=== PATIENT | male | born 1955 | race Caucasian/White ===

== ENCOUNTER 2016-08-05 11:43 | Inpatient (IN) | payer OTHER ==
[~2016-08-05] VITALS: Ht 182.9 cm; Wt 145.0 kg
--- NOTE | 2016-08-05 13:20 | NUR ---
ADMIT Direct Admit from [place]. Pt comes A&OX4, Denies CP, SOB at rest, and nausea. Telemetry will be placed on pt. Peripheral ivs X 2 Left FA and hand. NS and Potassium running in Left FA IV which will be stopped until telemetry placed. No BPs in right arm r/t lymph node removals. Bilateral LE neuropathy baseline in feet. Bilateral LE nonpitting slight swelling. Connolly in place patent and draining small amount of nia urine. Care continues Addendum: 08/05/16 at 1451 by FREDY CHRISTIAN RN Several linens soiled and wet with yellow strong smelling odor removed from under pt after transfer. Pt placed on Contact C-Diff procautions until r/o.
[2016-08-05 13:42] VITALS: BP 86/61; PULSE 93; RESP 19; O2SAT 96
[2016-08-05 13:48] VITALS: PULSE 85
[2016-08-05] MEDS ORDERED: Polyethylene Glycol (PEG) 17 Gm Powder PO PRN (14:20)
[2016-08-05] MEDS ORDERED: Alum-Mag Hydrox-Simeth 30 mL Suspension PO PRN (14:20)
[2016-08-05] MEDS ORDERED: Ondansetron 2 mg/mL 2 mL Inj IVPUSH PRN (14:20)
[2016-08-05] MEDS ORDERED: HYDR10TA12 PO ×2 (14:31)
[2016-08-05] MEDS ORDERED: ONDA-54 PO (14:31)
[2016-08-05] MEDS ORDERED: LEVO50TA6 PO (14:31)
[2016-08-05] MEDS ORDERED: LISI1TAB11 PO (14:31)
[2016-08-05] MEDS: Vancomycin 125 mg Oral Capsule PO SCH ×2 (15:46→21:46)
[2016-08-05] MEDS ORDERED: 0.9% Sodium Chloride 1,000 ML IV ONE (16:45)
--- NOTE | 2016-08-05 16:48 | PCM.HPMED ---
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 He was also recently diagnosed with primary adrenal insufficiency He presented to [facility] ED with watery diarrhea which started 5 days ago. Diarrhea is watery, no mucosal blood, very frequent, 6 episodes in the last few hours. He also has nausea and poor oral intake. He felt fever and chills starting Friday 3 days ago. No abdominal pain. Denies cough. Denies any antibiotic use recently He is currently on steroid for primary adrenal insufficiency reportedly identified with ACTH stimulation test on 07/17/16 He is on lisinopril/HCTZ 20/12.5 daily which he has been taking [place] ED course: He was initially hypotensive with systolic blood pressure 68 and was given 1.5 L of normal saline and systolic blood pressure responded to 92. Stool for C. difficile sent WBC 12.9, hemoglobin 16.7 (hemoconcentrated), K3.1, bicarbonate 16, BUn 30,Cr 4.1, lactate 1.4,Tbili 1.9, pro calcitonin 1.1, INR 1.2, Fluid administered and transferred for nephrology evaluation Up on arrival BP 86/61, temp 38.1, HR 93. Normal saline bolus given and continued at 200ml/h Review of Systems: Comprehensive review of systems performed, pertinent positives and negatives included in history of present illness Allergies Coded Allergies: No Known Allergies (Unverified , 08/05/16) Home Medications Amlodipine 5 mg by mouth daily recently discontinued last week Naproxen 220 mg when necessary for pain Synthroid 50 mics daily Lisinopril/HCTZ 20/12.5 one tablet by mouth daily Zofran 8 mg by mouth before meals lorazepam 0.5 when necessary for anxiety Hydrocortisone 20 mg in the morning , 20 mg at lunchtime, 10 mg at bedtime PMH Stage IV metastatic melanoma diagnosed initially in 1995 Bilateral pulmonary metastases Hypertension Hypothyroidism Primary adrenal insufficiency, reportedly identified with ACTH stimulation test on 07/17/16 Surgical History Cholecystectomy Right axillary lymphadenectomy Partial thyroidectomy Family History Reviewed and noncontributory Social History Hx Alcohol Use: Yes ("very little") Exam Vital Signs Vital Sign - Last Date Time Temp Pulse Resp B/P Pulse Ox O2 Delivery O2 Flow Rate FiO2 08/05/16 13:57 Supplement Oxygen 08/05/16 13:48 85 08/05/16 13:42 38.1 19 86/61 96 Exam Gen. patient is lying comfortably in hospital bed HEENT: Head is normocephalic atraumatic, dry tongue and buccal mucosa Lungs clear to auscultation bilaterally Heart regular rate and rhythm without murmurs gallops or rubs Abdomen soft nontender without hepatosplenomegaly Extremities pulses are present dorsalis pedis posterior tibialis and radial. tSkin is warm and dry there are no rashes, Psych alert and oriented to person place and time Neuro cranial nerves II through XII are grossly intact Lymph: There is no lymphadenopathy appreciated in the cervical supra infraclavicular regions : no maravilla Assessment & Plan 61-year-old gentleman with past medical history of stage IV metastatic melanoma , recently diagnosed primary adrenal insufficiency presented with a five-day diarrhea and acute kidney failure # Acute kidney failure, prerenal -Due to diarrhea, poor oral intake in setting of continued lisinopril/HCTZ use -Patient presented with creatinine of 4.1, baseline creatinine normal -Continue IV fluids NS at 200ml/h -Had hypotension at [place] and on arrival and her and responded to bolus. Started on stress dose steroid hydrocortisone 100 3 times a day given recent diagnosis of primary adrenal insufficiency -CT abdomen -We will consult nephrology # Hypotension -Due to diarrhea and primary adrenal insufficiency -Management of above # Acute watery diarrhea -Due to infectious colitis versus C. difficile versus recent melanoma immunotherapy -C. difficile requested here, C. difficile was reportedly also sent at [facility], with follow-up tomorrow -Started empiric by mouth vancomycin until C. difficile result is available -Diarrhea possibly due to immunotherapy but will cover with empiric antibiotic Zosyn for colitis and by mouth vancomycin for C. difficile given procal of 1.12, temp 38.1 . He is also started on empiric stress dose steroid which may help with immunotherapy related diarrhea -CT abd pending # sepsis -Temp 38.1, initial application with SBP 86, WBC 12 but on steroid -Started empiric Zosyn to cover colitis -Consult ID # Primary adrenal insufficiency, recently diagnosed -Stress dose steroid # Metastatic melanoma -We will notify Dr. Fiore Patient admitted under inpatient status with expected length of stay > 2 midnights for severity of present symptoms, complexities of treatment plan and risk for adverse events full code, verified with patient copies to: Ashok Fiore DO; Lukasz Archuleta MD, Melaku MD August 05, 2016 16:48
[2016-08-05 17:13] VITALS: BP 121/75; PULSE 88; RESP 18; O2SAT 96
--- NOTE | 2016-08-05 17:21 | NUR ---
MD Concern Per MD Strict Q4 vitals checks. If pt experiences any hypotension less than 100 S then notify MD personal injury law specialist JOSELINE. Care continues
[2016-08-05 17:54] LABS: BASOPHILS % (AUTO) 0.3 % (0-3); EOSINOPHILS % (AUTO) 0.2 % (0-5); MONOCYTES % (AUTO) 6.1 % (4-12); Mean Corpuscular Hemoglobin 31.5 pg (27.0-35.0); Mean Corpuscular Volume 89.6 fL (81-100); NEUTROPHILS % (AUTO) 84.7 % (40-74); Platelet Count 141 bil/L (150-400)
[2016-08-05 18:24] LABS: Magnesium 1.8 mg/dL (1.6-2.6)
[2016-08-05] MEDS: Hydrocortisone 50 mg/mL 2 mL Inj IVPUSH SCH (18:27)
[2016-08-05] MEDS ORDERED: Piperacillin-Tazo 3.375 Gm Inj 3.375 GM in Dextrose 5% Minibag Plus 50 ML IV SCH (18:30)
--- NOTE | 2016-08-05 18:53 | NUR ---
Diarrhea Multiple loose stools green and watery with odor. Precautions in place for enteric contact.
[2016-08-05 19:09] LABS: APPEARANCE,URINE CLEAR (CLEAR,HAZY); COLOR,URINE YELLOW (YELLOW); OCCULT BLOOD,URINE MODERATE (NEGATIVE); UROBILINOGEN,URINE NORMAL (NORMAL)
[2016-08-05] MEDS: 0.9% Sodium Chloride 1,000 ML IV SCH ×2 (19:17→20:59)
--- NOTE | 2016-08-05 19:29 | DRSVH ---
PROCEDURE: CT ABDOMEN AND PELVIS WITHOUT CONTRAST ([id number]) INDICATIONS: ELOY ,colitis TECHNIQUE: After the administration of oral contrast, 5 mm thick sections acquired from the diaphragms to the sy mphysis. 5 mm coronal and sagittal reformats were performed. For radiation dose reduction, the foll owing was used: automated exposure control, adjustment of mA and/or kV according to patient size. COMPARISON: [facility], CT, NECK/CHEST/ABD/PEL W CONTRAST, 07/25/2016, 13:24. FINDINGS: Image quality: Excellent. ABDOMEN: Lung bases: Previously seen nodule within the right posterior medial lung base has increased in size, currently measuring 23 mm diameter. No significant change in left posterior costophrenic angle nodul e measuring 10 mm. Heart size is normal. Solid organs: Liver and spleen are normal in size. Gallbladder is surgically absent. Pancreas is n ormal in size. No adrenal nodules. Both kidneys are normal in size, without hydronephrosis or nephr olithiasis. Peritoneum and bowel: A small hiatal hernia is present, as before. There is mild thickening of the di stal esophagus, as before. Bowel loops demonstrate normal wall thickness and caliber. Diffuse coloni c fluid is present. No free fluid or air. Nodes and vessels: No retroperitoneal or mesenteric adenopathy by size criteria. Aorta and inferior vena cava are normal in size. Miscellaneous: No ventral hernias. PELVIS: Genitourinary: A Connolly catheter is present. Urinary bladder is decompressed. Miscellaneous: No inguinal hernias or adenopathy. Bones: No suspicious bony lesions. No vertebral body compression fractures. IMPRESSION: 1. Diffuse colonic fluid, consistent with the given history of colitis. 2. Increased right lung base metastasis. Dictated by: Dana Lopez M.D. on 08/05/2016 at 19:24 Approved by: Dana Lopez M.D. on 08/05/2016 at 19:28
[2016-08-05 19:50] VITALS: BP 128/75; PULSE 80; RESP 17; O2SAT 97
[2016-08-05 20:00] VITALS: PULSE 75
[2016-08-05] MEDS: Piperacillin-Tazo 3.375 Gm Inj 3.375 GM in Dextrose 5% Minibag Plus 50 ML IV SCH (20:00)
[2016-08-05 23:50] VITALS: BP 124/74; PULSE 72; RESP 16; O2SAT 99
[2016-08-06] MEDS: Hydrocortisone 50 mg/mL 2 mL Inj IVPUSH SCH ×2 (00:46→08:04)
--- NOTE | 2016-08-06 01:24 | NUR ---
Bowel/BP Pt continues with watery diarrhea-green in color. PCR negative, removed Pt from precautions. BP stable 120's, Pt up to BSC with steady gait, Connolly ok'd to remove per MD, Pt has good urine output.
[2016-08-06] MEDS: 0.9% Sodium Chloride 1,000 ML IV SCH ×4 (01:55→16:17)
[2016-08-06] MEDS: Vancomycin 125 mg Oral Capsule PO SCH (02:50)
[2016-08-06 04:30] VITALS: BP 129/80; PULSE 75; RESP 16; O2SAT 97
[2016-08-06 06:46] LABS: BASOPHILS % (AUTO) 0 % (0-3); EOSINOPHILS % (AUTO) 0 % (0-5); MONOCYTES % (AUTO) 3.4 % (4-12); Mean Corpuscular Hemoglobin 31.4 pg (27.0-35.0); Mean Corpuscular Volume 89.1 fL (81-100); NEUTROPHILS % (AUTO) 88.1 % (40-74); Platelet Count 138 bil/L (150-400)
[2016-08-06 06:56] LABS: Magnesium 1.9 mg/dL (1.6-2.6)
[2016-08-06] MEDS: Piperacillin-Tazo 3.375 Gm Inj 3.375 GM in Dextrose 5% Minibag Plus 50 ML IV SCH (08:04)
[2016-08-06 10:07] VITALS: BP 144/78; PULSE 68; RESP 18; O2SAT 97
[2016-08-06 10:47] VITALS: PULSE 65
--- NOTE | 2016-08-06 11:56 | CONS ---
[address] [address] CONSULTATION REPORT PATIENT: AMY SARMIENTO : 1955 MR#: [id number] ADMIT: 08/05/2016 JOB ID: [id number] INFECTIOUS DISEASE CONSULTATION: DATE OF SERVICE: 08/06/2016 I thank, Dr. Knutson for this timely consult. REASON FOR CONSULTATION: Colitis and diarrhea in a patient undergoing checkpoint inhibitor therapy for melanoma. HISTORY OF PRESENT ILLNESS: The patient is a complex, 61-year-old gentleman with a long history of melanoma. His original diagnosis of melanoma was back in the when he had an arm lesion. He did well for about a decade and then had a recurrence in his right axilla in 2004, and then a subsequent recurrence in 2014 in his neck. More recently, he was found to have extensive pulmonary and brain involvement. The patient underwent extensive whole-brain radiation for the brain disease and then was started on a combination of ipilimumab and nivolumab which are combination checkpoint inhibitors that have been shown to be efficacious in some forms of metastatic melanoma. The patient just recently completed his 4th course of these dual agents and they are given every three weeks. The first couple of courses were uncomplicated but after the 3rd course he developed diarrhea which required some extra hydration and some steroid supplementation but resolved fairly uneventfully. The patient finished dual therapy at the end of June, but following that developed malaise, weakness, subjective fevers, diaphoresis at times and diarrhea. This diarrhea has been off and on quite severe over the past three weeks; at times leading the patient to profound dehydration and need for intravenous rehydration as an outpatient. About a week ago, he received a course of the nivolumab as solo maintenance therapy. The patient has continued however to have malaise, weakness, dehydration requiring almost daily rehydration and ongoing very frequent bowel movements; from 6-10 a day including several bowel movements per night. He is not aware of having had any majorable fevers, though one was recorded on the day of admission, which was yesterday, August 05. The patient is now receiving intravenous fluids here in the hospital and is feeling somewhat better. Note that the patient has a history of adrenal insufficiency and is always on low-dose replacement dose hydrocortisone but that is now been increased to a so-called stress dose here in the hospital. Throughout this course of events, the patient has been free of headache, sore throat, significant pulmonary complaint, rigors, or drenching night sweats, though he has had some degree of diaphoresis as well as progressive malaise and weakness as noted. PAST MEDICAL HISTORY: 1. Metastatic melanoma. 2. Hypothyroidism. 3. Adrenal insufficiency. 4. Hypertension. 5. Osteoarthritis. SOCIAL HISTORY: The patient is a rare consumer of alcohol and does not smoke cigarettes. His foreign travels are limited to [place] in the [facility] and that is essentially all. The patient works for a [employer] company. He is and lives with his . FAMILY HISTORY: Negative for tuberculosis in first and second-degree relatives. REVIEW OF SYSTEMS: Review of systems negative for mental status changes, headache, sore throat, visual change, cough, shortness of breath. He does have nausea and anorexia in association with his voluminous diarrhea. He has abdominal cramps with bowel movements but not in between. No dysuria, urgency, frequency. No swelling of the joints. No skin rash. Remainder of the review of systems negative. PHYSICAL EXAMINATION: Reveals an afebrile gentleman, he was 38.1, when he came in, which would certainly be borderline for fever, but since then, completely afebrile. Temp 36.6, pulse 65, respiratory rate 18, blood pressure 144/78, saturating well on room air. He is awake and alert though he feels somewhat tired. Head without trauma. Eyes without conjunctivitis. Oral cavity: No thrush, hairy leukoplakia. Neck is supple. No adenopathy. No JVD. Lungs are clear. Cardiac tones: Regular rate and rhythm without murmur. Abdomen is slightly distended, and he is somewhat obese, BMI 39, but no hepatosplenomegaly, no focal tenderness, no masses appreciated, no suprapubic fullness. He does not have a Connolly catheter. No synovitis is noted. No skin rash. No significant peripheral edema. He is neurologically intact throughout. LABORATORY DATA: Include white count 6300, diff with 88% segs, but he is on stress dose steroids. Creatinine was 3.1 when he came in, now 1.9. LFTs normal. Albumin 3.2. Procalcitonin 0.29. Urinalysis: No white cells. Micro studies here include negative stool PCR panel and negative blood cultures. IMAGING: Includes an abdominal CT scan, which shows diffuse colonic fluid as noted which the radiologist says is consistent with colitis and they do note there is a right lung met as well. IMPRESSION: This patient presents with a classic history of steadily worsening gastrointestinal symptoms including colitis and frequent diarrhea with dehydration after dual checkpoint inhibitor for melanoma. This is one of a series of cases we have seen here over the past 6-12 months of this same condition. The toxicity of these drugs usually begins after two or three of the every three week cycles, so his story is pretty classic in that his symptoms started after the 3rd dual treatment and got dramatically worse after the 4th of these treatments. The treatment is to vigorously hydrate the patient and to provide high-dose steroids which would likely need to be higher than what he is currently receiving. From an Infectious Disease point of view, the nguyễn thing is to make sure there is no underlying infectious cause of colitis or diarrhea. Multiplex PCR study does a great job of ruling out almost all common causes of viral bacterial or parasitic diarrhea, though does not diamond picker Strongyloides. The patient's only conceivable risk would be during his trip to [place], 17 years ago, when presumably he walked barefoot in an area that is endemic for Strongyloides, though I think the chance he has this are very, very low. It is however capable of replicating within the human host for up to 60 years. RECOMMENDATIONS: 1. I would discontinue all antibiotics as I think this is noninfectious. 2. Dr. Fiore may wish to provide somewhat higher doses of steroids to affect a more rapid resolution of this process but I will leave that to him of course. 3. I will check a Strongyloides antibody. 4. Will go ahead and discontinue his Zosyn as it is likely to cause more harm than benefit in this noninfectious situation. 5. Infectious Disease will go ahead and sign off, but please do not hesitate to call if there is additional questions or issues regarding infection in this or any other patient.
--- NOTE | 2016-08-06 15:13 | PCM.PNMED ---
Subjective Date of Service August 06, 2016 Subjective diarrhea frequency improving ,ELOY improving Exam Vital Signs Vital Sign - Last Date Time Temp Pulse Resp B/P Pulse Ox O2 Delivery O2 Flow Rate FiO2 08/06/16 10:47 65 08/06/16 10:07 36.6 18 144/78 97 Room Air Intake and Output 08/05/16 08/05/16 08/06/16 Cumulative From/Thru 15:00 23:00 07:00 08/05/16 13:42 - 08/06/16 06:02 Intake Total 1200 ml 4616 ml 5816 ml Output Total 500 ml 2100 ml 2600 ml Balance 700 ml 2516 ml 3216 ml Intake Oral 1200 ml 700 ml 1900 ml IV Total 3916 ml 3916 ml Output Urine Total 500 ml 1200 ml 1700 ml Urine/Stool Mix 900 ml 900 ml # Bowel Movements 3 3 6 Exam Gen. patient is lying comfortably in hospital bed HEENT: Head is normocephalic atraumatic, dry tongue and buccal mucosa Lungs clear to auscultation bilaterally Heart regular rate and rhythm without murmurs gallops or rubs Abdomen soft nontender without hepatosplenomegaly Extremities pulses are present dorsalis pedis posterior tibialis and radial. Skin is warm and dry there are no rashes, Psych alert and oriented to person place and time Neuro cranial nerves II through XII are grossly intact Lymph: There is no lymphadenopathy appreciated in the cervical supra infraclavicular regions : no maravilla IVs and Medications Medications Reviewed: Medications were reviewed in detail Lab and Diagnostics Result Diagram: 08/06/16 0500 08/06/16 0500 X-Rays, CTs and MRIs PROCEDURE: CT ABDOMEN AND PELVIS WITHOUT CONTRAST ([id number]) INDICATIONS: ELOY ,colitis IMPRESSION: 1. Diffuse colonic fluid, consistent with the given history of colitis. 2. Increased right lung base metastasis. Dictated by: Dana Lopez M.D. on 08/05/2016 at 19:24 Assessment & Plan 61-year-old gentleman with past medical history of stage IV metastatic melanoma , recently diagnosed primary adrenal insufficiency presented with a five-day diarrhea and acute kidney failure # Acute kidney failure, prerenal -Due to diarrhea, poor oral intake in setting of continued lisinopril/HCTZ use -Patient presented with creatinine of 4.1 to [facility] ED, baseline creatinine normal.now improved to 1.95 -Continue IV fluids NS at 100ml/h -Had hypotension at [facility] and on arrival to [facility] , responded to bolus. Started on stress dose steroid hydrocortisone 100 3 times a day given recent diagnosis of primary adrenal insufficiency. Bp remained stable .diarrhea likely due to immunotherapy than infection.will lower stress dose to home dose -CT abdomen consistent with colitis # Hypotension,resolved -Due to diarrhea and primary adrenal insufficiency -Management of above # Acute watery diarrhea -Due to recent melanoma immunotherapy .infectious colitis unlikely .C. difficile ruled out -initially Started empiric by mouth vancomycin until C. difficile result is available. Discontinued now -Diarrhea possibly due to immunotherapy but will cover with empiric antibiotic Zosyn for colitis and by mouth vancomycin for C. difficile given procal of 1.12, temp 38.1 . He is also started on empiric stress dose steroid which may help with immunotherapy related diarrhea -CT abd pending # sepsis ruled out -Initial Temp 38.1, initial SBP 86, WBC 12 but on steroid -Initially Started empiric Zosyn to cover colitis. Discontinued antibiotics per ID -Diarrhea due to immunotherapy than noninfectious # Primary adrenal insufficiency, recently diagnosed - steroid # Metastatic melanoma -We will notify Dr. Fiore Patient admitted under inpatient status with expected length of stay > 2 midnights for severity of present symptoms, complexities of treatment plan and risk for adverse events full code, verified with patient Alhaji Knutson MD August 06, 2016 15:13
[2016-08-06 15:30] VITALS: BP 168/90; PULSE 73; RESP 18; O2SAT 100
[2016-08-06] MEDS ORDERED: Piperacillin-Tazo 3.375 Gm Inj 3.375 GM in Dextrose 5% Minibag Plus 50 ML IV SCH (16:30)
[2016-08-06] MEDS: MethylprednisoLONE Sodium Succinate 40 mg/mL Inj IVPUSH SCH (17:04)
--- NOTE | 2016-08-06 17:22 | NUR ---
Bowel Patient continued to have two episodes of green diarrhea during shift. Denies N/V. Patient did complain of some stomach discomfort after eating lunch and attributes it to his lap band that he had years ago. Patient given Maalox and stated that he received some relief. Patient had adequate urinary output during shift and tolerating oral fluids. Continuing to monitor for diarrhea, N, V, and any stomach discomfort.
--- NOTE | 2016-08-06 17:35 | NUR ---
BP Patient maintaining adequate oral fluid intake. BP 144/78 at 1000 and 168/90 at 1530. IV Fluids decreased to 100mLs per hour. Patient maintaining adequate urinary output. Patient denies dizziness. Lung sounds were slightly decreased and tight this AM, and were unchanged upon reassessment. Two IVs, patent and asymptomatic. Will continue to assess patient for dizziness, hypotension, and fluid intake.
[2016-08-06 20:00] VITALS: BP 160/85; PULSE 54; PULSE 57; RESP 22; O2SAT 98
[2016-08-06] MEDS: Hydrocortisone 10 mg Tablet PO SCH (20:28)
[2016-08-07] VITALS (8 sets, daily range): BP systolic 147–169; BP diastolic 74–85; PULSE 51–62; RESP 18–22; O2SAT 98–99
[2016-08-07] MEDS: MethylprednisoLONE Sodium Succinate 40 mg/mL Inj IVPUSH SCH ×2 (00:30→17:43)
[2016-08-07] MEDS: 0.9% Sodium Chloride 1,000 ML IV SCH (00:34)
--- NOTE | 2016-08-07 03:51 | NUR ---
BP/HR Pt on remote tele and [employer]PER[employer]. Pt HR dropping in to the 30's, Pt is rousable and has no c/o light headedness or CP. Pt BP is stable 158-160's this shift. IV fluids infusing. No c/o pain. Care continues
[2016-08-07 06:52] LABS: BASOPHILS % (AUTO) 0 % (0-3); EOSINOPHILS % (AUTO) 0.2 % (0-5); MONOCYTES % (AUTO) 2.1 % (4-12); Mean Corpuscular Hemoglobin 31.7 pg (27.0-35.0); Mean Corpuscular Volume 88.6 fL (81-100); NEUTROPHILS % (AUTO) 90.2 % (40-74); Platelet Count 134 bil/L (150-400)
[2016-08-07] MEDS ORDERED: Potassium Chloride 20 mEq SR Tablet PO ONE (08:00)
--- NOTE | 2016-08-07 08:33 | PCM.PNMED ---
Subjective Date of Service August 07, 2016 Subjective Diarrhea continues to improve. Had 2 episodes only overnight. Kidney function continues to improve. Exam Vital Signs Vital Sign - Last Date Time Temp Pulse Resp B/P Pulse Ox O2 Delivery O2 Flow Rate FiO2 08/07/16 04:55 36.4 52 20 166/83 99 Room Air Intake and Output 08/06/16 08/06/16 08/07/16 Cumulative From/Thru 15:00 23:00 07:00 08/05/16 13:42 - 08/07/16 06:30 Intake Total 2448 ml 1280 ml 9544 ml Output Total 775 ml 3375 ml Balance 1673 ml 1280 ml 6169 ml Intake Oral 1900 ml IV Total 2448 ml 1280 ml 7644 ml Output Urine Total 775 ml 2475 ml Urine/Stool Mix 900 ml # Voids 1 1 # Bowel Movements 2 8 Exam Gen. patient is lying comfortably in hospital bed HEENT: Head is normocephalic atraumatic, dry tongue and buccal mucosa Lungs clear to auscultation bilaterally Heart regular rate and rhythm without murmurs gallops or rubs Abdomen soft nontender without hepatosplenomegaly Extremities pulses are present dorsalis pedis posterior tibialis and radial. Skin is warm and dry there are no rashes, Psych alert and oriented to person place and time Neuro cranial nerves II through XII are grossly intact Lymph: There is no lymphadenopathy appreciated in the cervical supra infraclavicular regions : no maravilla IVs and Medications Medications Reviewed: Medications were reviewed in detail Lab and Diagnostics Result Diagram: 08/07/16 0540 08/07/16 0540 X-Rays, CTs and MRIs PROCEDURE: CT ABDOMEN AND PELVIS WITHOUT CONTRAST ([id number]) INDICATIONS: ELOY ,colitis IMPRESSION: 1. Diffuse colonic fluid, consistent with the given history of colitis. 2. Increased right lung base metastasis. Dictated by: Dana Lopez M.D. on 08/05/2016 at 19:24 Assessment & Plan 61-year-old gentleman with past medical history of stage IV metastatic melanoma , recently diagnosed primary adrenal insufficiency presented with a five-day diarrhea and acute kidney failure # Acute kidney failure, prerenal -Due to diarrhea, poor oral intake in setting of continued lisinopril/HCTZ use -Patient presented with creatinine of 4.1 to [place] ED, baseline creatinine normal.now improved to 1.13 -treated with IV fluids NS at 100ml/h,discontinue now -Had hypotension at [place] and on arrival to [facility] , responded to bolus. initially Started on stress dose steroid hydrocortisone 100 3 times a day given recent diagnosis of primary adrenal insufficiency. Bp remained stable .diarrhea likely due to immunotherapy than infection.lowered stress dose to home dose hydrocortisone on 08/06 -CT abdomen consistent with colitis # Hypotension,resolved -Due to diarrhea and primary adrenal insufficiency -Management of above # Acute watery diarrhea -Due to recent melanoma immunotherapy .infectious colitis unlikely .C. difficile ruled out -initially Started empiric by mouth vancomycin until C. difficile result is available. Discontinued now -Diarrhea likely due to immunotherapy . Initially started empiric antibiotic Zosyn for colitis and by mouth vancomycin for C. difficile given procal of 1.12, temp 38.1 . Zosyn and by mouth vancomycin discontinued now -Discussed with Dr Fiore 08/06 and added Solu-Medrol 40 every 8. kept hydrocortisone for mineralocorticoid activity. started loperamide. Patient diarrhea continues to improve, will lower Solu-Medrol 40 bid and probably stop tomorrow if continues to improve. # sepsis ruled out -Initial Temp 38.1, initial SBP 86, WBC 12 but on steroid -Initially Started empiric Zosyn to cover colitis. Discontinued antibiotics per ID -Diarrhea due to immunotherapy than noninfectious # Primary adrenal insufficiency, recently diagnosed - Continue steroid as above # Metastatic melanoma - Dr. Fiore following # Hypertension -Continue to hold lisinopril/HCTZ for today, will resume tomorrow #Hypothyroidism Continue Synthroid #ppx ppi given steroid and Lovenox full code, verified with patient [employer]: Intermittant Pneum[employer] CD Alhaji Knutson MD August 07, 2016 08:33
[2016-08-07] MEDS: Hydrocortisone 10 mg Tablet PO SCH ×3 (08:49→21:10)
[2016-08-07] MEDS: Pantoprazole 20 mg ER24 Tablet PO SCH (08:51)
--- NOTE | 2016-08-07 11:50 | NUR ---
Social Work-screening: Data:EMR reviewed. Pt is a 61 y/o male who was admitted on 08/05/16 for dehydration and acute renal injury per H&P. Pt's insurance is [employer] and PCP is Leonard Archuleta MD. EMR reviewed. Pt's readmission score is 3-high risk. SW met with pt and Lin at bedside to discuss discharge planning, SW role explained. Pt and reside in a house in [place] where he remains independent with ADLS. Pt has no been driving. Pt's oncologist is Dr. Fiore. Pt has no HH or SNF history. SW discussed DPOA/ advanced directive, pt confirms they have completed this, SW encouraged a copy to be brought in. Pt and declining any needs at this time. Pt's to provide transport home. SW provided phone number and plan on white board in room. No anticipated discharge needs. SW will continue to follow if needs arise. Assessment:Pt who is independent at baseline. Plan:Pt to discharge home when medically stable via POV. No anticipated discharge needs. SW will continue to follow if needs arise. ILYA Sidhu
--- NOTE | 2016-08-07 18:02 | NUR ---
GI Bowel movements slowed down today. 2 on day shift, both more formed than previous BMs and the last one has darkened up considerably. Pt denies abdominal pain/discomfort. Solu-Medrol given as ordered. Continues to have a decreased appetite but denies nausea, Ensure added to dinner tray.
--- NOTE | 2016-08-07 20:48 | PROG NOTE ---
[address] [address] PROGRESS NOTE PATIENT: AMY SARMIENTO : 1955 MR#: [id number] ADMIT: 08/05/2016 JOB ID: [id number] DATE: 08/07/2016 SUBJECTIVE: The patient is being seen today per hospital rounds. He carries a diagnosis of metastatic melanoma, recently completing four cycles of ipilimumab and nivolumab approximately two weeks ago. The patient's treatment course was complicated by confirmed primary adrenal insufficiency. The patient was subsequently started on hydrocortisone replacement with excellent clinical benefit. Unfortunately, on August 05, 2016, he presented to emergency department at [facility] after 24-48 hours of significant diarrhea and decreased p.o. intake, found have a serum creatinine of 4.1. The patient has since subsequently been admitted to [facility] with IV fluid support with normalization of his kidney function as of August 07, 2016 serum creatinine 1.13. He was also started on IV Solu-Medrol for grade 4 colitis secondary to immunotherapy on August 07, 2016 and today he states he has seen a significant benefit with his stools now formed. The remainder of his review of systems is otherwise negative. PAST MEDICAL HISTORY: Significant for: 1. Metastatic malignant melanoma. 2. Primary adrenal insufficiency. 3. 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 PHYSICAL EXAMINATION: Vital signs today showing a weight of 134 kg, blood pressure was 154/83, temperature 36, pulse is 54, respiratory rate is 18. He is saturating at 99% on room air. He is A and O x3. In good spirits overall. Affect appropriate. PERRLA. Anicteric. LABORATORY DATA: From August 07, 2016 showing a white cell count of 6.6, hemoglobin 13.3, platelet count of 134. Sodium 141, potassium 3.3, serum creatinine 1.13. Calcium 8.4, AST 11, ALT 11, alk phos 54. ASSESSMENT AND PLAN: The patient is a very pleasant 61-year-old male with grade 3/4 colitis secondary to his ipilimumab and nivolumab responding and reversing with IV Solu-Medrol over the past 24 hours. RECOMMENDATIONS: For the patient at this time are to transition him to p.o. prednisone 40 mg b.i.d. The patient can be discharged from the hospital once the hospitalist service feels appropriate with followup in my clinic at [facility] within the next week. Please call with any questions. My cell phone #[phone].
[2016-08-08 00:41] VITALS: BP 152/86; PULSE 54; RESP 18; O2SAT 99
--- NOTE | 2016-08-08 02:43 | NUR ---
Activity Patient A&OX3 and pleasant this evening. Denies any Pain, SOB, or CP. Up to the bathroom SBA to have one BM so far this shift. States that BMs are more formed than previously. Tele monitor reports Sinus Zach 54. Will continue to monitor, and continue Q1 hour checks.
[2016-08-08 05:14] VITALS: PULSE 67
[2016-08-08 05:26] VITALS: BP 156/84; PULSE 56; RESP 20; O2SAT 93
[2016-08-08 08:00] VITALS: PULSE 49
[2016-08-08 08:11] LABS: BASOPHILS % (AUTO) 0.1 % (0-3); EOSINOPHILS % (AUTO) 0.1 % (0-5); MONOCYTES % (AUTO) 9.2 % (4-12); Mean Corpuscular Hemoglobin 31.2 pg (27.0-35.0); Mean Corpuscular Volume 85.2 fL (81-100); NEUTROPHILS % (AUTO) 77.5 % (40-74); Platelet Count 166 bil/L (150-400)
[2016-08-08 08:30] LABS: Magnesium 2.1 mg/dL (1.6-2.6)
[2016-08-08] MEDS: Pantoprazole 20 mg ER24 Tablet PO SCH (08:46)
[2016-08-08] MEDS: MethylprednisoLONE Sodium Succinate 40 mg/mL Inj IVPUSH SCH (08:49)
[2016-08-08 08:52] VITALS: BP 160/87; PULSE 51; RESP 16; O2SAT 99
--- NOTE | 2016-08-08 09:27 | NUR ---
Social Work-Readiness for Discharge Data:EMR reviewed. Pt is on day3 of hospitalization for dehydration and acute renal injury per H&P. Pt is medically stable for discharge, anticipate discharge later today. Pt's to provide transport home. No anticipated discharge needs. SW will continue to follow if needs arise. Assessment:Pt who is independent at baseline. Plan: Pt to discharge home with when medically stable via POV. No anticipated discharge needs. SW will continue to follow if needs arise. ILYA Vora
--- NOTE | 2016-08-08 09:30 | PCM.DIMED ---
Discharge Instructions Date of Service August 08, 2016 Dates of Hospitalization August 05, 2016 at 13:05 Discharge Diagnosis Discharge Diagnosis # Acute kidney failure, prerenal -Due to diarrhea, poor oral intake in setting of continued lisinopril/HCTZ use # Hypotension,resolved -Due to diarrhea and primary adrenal insufficiency # Acute watery diarrhea -Due to recent melanoma immunotherapy .( ipilimumab and nivolumab ) # Primary adrenal insufficiency, recently diagnosed # Metastatic melanoma # Hypertension #Hypothyroidism Test Results Test Results initial Cr 4.[address] consistent with colitis Diet Discharge Diet: Heart Healthy Activity Discharge Activity: Limited until seen by PCP Call your provider Call your provider for: Fever or Chills, Shortness of breath, Bleeding, Chest pain, Vomitting, Excessive diarrhea, Weakness (unilateral) Patient Instructions Patient Instructions You were hospitalized due to acute kidney injury due to diarrhea. Acute kidney injury resolved. Diarrhea seems to be due to your recent immunotherapy. Please continue prednisone 40 mg by mouth twice a day for 2 days then 30 mg by mouth twice a day for 2 days then 20 mg twice daily then 20 mg daily for 2 days then 10 mg daily for 2 days then stop. Please continue hydrocortisone as usual without changes. Please follow-up with Dr. Fiore in 1 week. Follow-up Provider: Lukasz Archuleta MD Follow-up with PCP in: 2 weeks Provider: Ashok Fiore DO Follow-up in: 1 week Alhaji Knutson MD August 08, 2016 09:30
[2016-08-08] MEDS ORDERED: LOPE2CAP PO (09:34)
[2016-08-08] MEDS ORDERED: PANT20TA2 PO (09:34)
[2016-08-08] MEDS ORDERED: PRE20 PO (09:34)
[2016-08-08] MEDS: Hydrocortisone 10 mg Tablet PO SCH (09:43)
--- NOTE | 2016-08-08 10:17 | PCM.DC.MED ---
Discharge Summary Date of Service August 08, 2016 Dates of Hospitalization Date of Hospital Admission August 05, 2016 at 13:05 Date of Discharge: August 08, 2016 Providers: Admitting Physician: Peterson Pierre Primary Care Physician: Lukasz Archuleta MD Attending Physician: Peterson Pierre Diagnosis at Time of Discharge Diagnosis at Time of Discharge # Acute kidney failure, prerenal -Due to diarrhea, poor oral intake in setting of continued lisinopril/HCTZ use # Hypotension,resolved -Due to diarrhea and primary adrenal insufficiency # Acute watery diarrhea -Due to recent melanoma immunotherapy .( ipilimumab and nivolumab ) # Primary adrenal insufficiency, recently diagnosed # Metastatic melanoma # Hypertension #Hypothyroidism Procedures XRay, CTs & MRIs PROCEDURE: CT ABDOMEN AND PELVIS WITHOUT CONTRAST ([id number]) INDICATIONS: ELOY ,colitis IMPRESSION: 1. Diffuse colonic fluid, consistent with the given history of colitis. 2. Increased right lung base metastasis. Dictated by: Dana Lopez M.D. on 08/05/2016 at 19:24 Brief History per HPI 61-year-old gentleman with past medical history of stage IV metastatic melanoma with lung and brain metastases completed radiation and getting immunotheray , last dose 2 weeks ago and scheduled to get another immunotherapy next week. He was also recently diagnosed with primary adrenal insufficiency He presented to [facility] ED with watery diarrhea which started 5 days ago. Diarrhea is watery, no mucosal blood, very frequent, 6 episodes in the last few hours. He also has nausea and poor oral intake. He felt fever and chills starting Friday 3 days ago. No abdominal pain. Denies cough. Denies any antibiotic use recently He is currently on steroid for primary adrenal insufficiency reportedly identified with ACTH stimulation test on 07/17/16 He is on lisinopril/HCTZ 20/12.5 daily which he has been taking [facility] ED course: He was initially hypotensive with systolic blood pressure 68 and was given 1.5 L of normal saline and systolic blood pressure responded to 92. Stool for C. difficile sent WBC 12.9, hemoglobin 16.7 (hemoconcentrated), K3.1, bicarbonate 16, BUn 30,Cr 4.1, lactate 1.4,Tbili 1.9, pro calcitonin 1.1, INR 1.2, Fluid administered and transferred for nephrology evaluation Up on arrival BP 86/61, temp 38.1, HR 93. Normal saline bolus given and continued at 200ml/h Hospital Course 61-year-old gentleman with past medical history of stage IV metastatic melanoma , recently diagnosed primary adrenal insufficiency presented with a five-day diarrhea and acute kidney failure # Acute kidney failure, prerenal -Due to diarrhea, poor oral intake in setting of continued lisinopril/HCTZ use -Patient presented with creatinine of 4.1 to [facility] ED, baseline creatinine normal.now improved to 1 -treated with IV fluids -Had hypotension at [facility] and on arrival to [facility] , responded to bolus. initially Started on stress dose steroid hydrocortisone 100 3 times a day given recent diagnosis of primary adrenal insufficiency. Bp remained stable .diarrhea likely due to immunotherapy than infection.lowered stress dose to home dose hydrocortisone on 08/06 -CT abdomen consistent with colitis # Hypotension,resolved -Due to diarrhea and primary adrenal insufficiency -Management of above # Acute watery diarrhea -Due to recent melanoma immunotherapy( ipilimumab and nivolumab ) .infectious colitis unlikely .C. difficile ruled out -initially Started empiric by mouth vancomycin until C. difficile result is available. Discontinued eventually -Diarrhea likely due to immunotherapy . Initially started empiric antibiotic Zosyn for colitis and by mouth vancomycin for C. difficile given procal of 1.12, temp 38.1 . Zosyn and by mouth vancomycin discontinued later -Discussed with Dr Fiore 08/06 and added Solu-Medrol 40 every 8 H. kept hydrocortisone for mineralocorticoid activity. started loperamide. Patient diarrhea continues to improve, will discharge on prednisone taper as prednisone 40 mg by mouth twice a day for 2 days then 30 mg by mouth twice a day for 2 days then 20 mg twice daily then 20 mg daily for 2 days then 10 mg daily for 2 days then stop -Advised to hold tapering and continue same dose if diarrhea worsens and discussed with Dr. Fiore -Started the Protonix 20 by mouth daily while on high-dose steroid # sepsis ruled out -Initial Temp 38.1, initial SBP 86, WBC 12 but on steroid -Initially Started empiric Zosyn to cover colitis. Discontinued antibiotics per ID -Diarrhea due to immunotherapy than noninfectious # Primary adrenal insufficiency, recently diagnosed - Continue steroid as above. Continue hydrocortisone without change # Metastatic melanoma - Dr. Fiore following # Hypertension -Resume lisinopril/HCTZ upon discharge #Hypothyroidism Continue Synthroid #ppx ppi given steroid and Lovenox full code, verified with patient Discharge home Condition on discharge stable Follow-up with Dr. Fiore next week Exam Vital Signs (Last) Date Time Temp Pulse Resp B/P Pulse Ox O2 Delivery O2 Flow Rate FiO2 08/08/16 08:52 36.6 51 16 160/87 99 Room Air Exam Gen. patient is lying comfortably in hospital bed HEENT: Head is normocephalic atraumatic, dry tongue and buccal mucosa Lungs clear to auscultation bilaterally Heart regular rate and rhythm without murmurs gallops or rubs Abdomen soft nontender without hepatosplenomegaly Extremities pulses are present dorsalis pedis posterior tibialis and radial. Skin is warm and dry there are no rashes, Psych alert and oriented to person place and time Neuro cranial nerves II through XII are grossly intact Lymph: There is no lymphadenopathy appreciated in the cervical supra infraclavicular regions : no maravilla Test 08/05/16 17:44 08/05/16 18:38 08/06/16 05:00 08/07/16 05:40 Hold Paul Top Tube Received (Received) Urine Color Yellow (YELLOW) Urine Appearance Clear (CLEAR,HAZY) Urine pH 5.0 (5.0-8.0) Urine Specific [place]field 1.020 (1.003-1.035) Urine Protein 30mg/dL (NEG,TRACE) Urine Glucose (UA) Negativemg/dL (NEGATIVE) Urine Ketones 15mg/dL (NEGATIVE) Urine Occult Blood Moderate (NEGATIVE) Urine Nitrite Negative (NEGATIVE) Urine Bilirubin Negative (NEGATIVE) Urine Urobilinogen Normalmg/dL (NORMAL) Urine Leukocyte Esterase Negative (NEGATIVE) Urine RBC 0-2/hpf (0-2) Urine WBC 0-5/hpf (0-5) Urine Epithelial Cells Occasional/hpf (NONE-MOD) Urine Crystals Amorphous urates (NONE Urine Bacteria None/hpf (NONE-FEW) Urine Hyaline Casts None/lpf (NONE) Urine Granular Casts None seen (NONE SEEN) Urine Waxy Casts None seen (NONE SEEN) Urine Red Blood Cell Casts None seen (NONE SEEN) Urine White Blood Cell Casts None seen (NONE SEEN) Urine Mucus None seen (None Seen) Urine Trichomonas None seen (NONE SEEN) Urine Yeast None (NONE SEEN) Urinalysis Comment None Urine Culture Reflexed Not indicated Procalcitonin 0.13ng/mL (0.00-0.08) Test 08/08/16 08:02 White Blood Count 8.0th/mm3 (3.8-10.1) Red Blood Count 4.26mil/mm3 (4.40-5.80) Hemoglobin 13.3g/dL (13.8-17.2) Hematocrit 36.3% (41.0-50.0) Mean Corpuscular Volume 85.2fL (81-100) Mean Corpuscular Hemoglobin 31.2pg (27.0-35.0) Mean Corpuscular Hemoglobin Concent 36.6% (32.0-37.0) Red Cell Distribution Width 15.0% (12.3-15.4) Platelet Count 166bil/L (150-400) Neutrophils (%) (Auto) 77.5% (40-74) Lymphocytes (%) (Auto) 12.8% (14-46) Monocytes (%) (Auto) 9.2% (4-12) Eosinophils (%) (Auto) 0.1% (0-5) Basophils (%) (Auto) 0.1% (0-3) Sodium Level 140mEq/L (134-144) Potassium Level 3.7mEq/L (3.5-5.2) Chloride Level 110mEq/L (97-108) Carbon Dioxide Level 17mmol/L (18-29) Blood Urea Nitrogen 15mg/dL (8-27) Creatinine 1.04mg/dL (0.76-1.27) Estimat Glomerular Filtration Rate 77mL/min (>59) Glucose Level 108mg/dL (60-99) Calcium Level 8.5mg/dL (8.5-10.1) Magnesium Level 2.1mg/dL (1.6-2.6) Total Bilirubin 0.4mg/dL (0.0-1.2) Aspartate Amino Transf (AST/SGOT) 10U/L (0-50) Alanine Aminotransferase (ALT/SGPT) 11U/L (0-44) Alkaline Phosphatase 52U/L (25-160) Total Protein 5.5g/dL (6.4-8.4) Albumin 3.4g/dL (3.4-5.0) Discharge Medications Discharge Medications Hydrocortisone (Hydrocortisone) 10 Mg Tablet 10 MG PO HS (Reported) Hydrocortisone (Hydrocortisone) 10 Mg Tablet 20 MG PO Breakfast/Lunch (Reported ) Levothyroxine (Levothyroxine) 50 Mcg Tablet 50 MCG PO DAILY (Reported) Lisinopril / HCTZ 20-25 mg (Lisinopril / HCTZ 20-25 mg) 1 Each Tablet 1 TAB PO DAILY (Reported) Pantoprazole DR (Pantoprazole DR) 20 Mg Tablet.dr 20 MG PO DAILYAC Prescribed by: NUVIA LONDON MD Prednisone (PredniSONE) 20 Mg Tablet 40 MG PO BID Prescribed by: NUVIA LONDON MD As needed Loperamide (Loperamide) 2 Mg Capsule 2 MG PO Q6H PRN PRN For Diarrhea or Loose Stool Prescribed by: NUIVA LONDON MD Ondansetron (Ondansetron) 8 Mg Tablet 8 MG PO PRN For Nausea (Reported) Followup Plan Disposition: Home Discharge Diet: Heart Healthy Discharge Activity: Limited until seen by PCP Patient Instructions You were hospitalized due to acute kidney injury due to diarrhea. Acute kidney injury resolved. Diarrhea seems to be due to your recent immunotherapy. Please continue prednisone 40 mg by mouth twice a day for 2 days then 30 mg by mouth twice a day for 2 days then 20 mg twice daily then 20 mg daily for 2 days then 10 mg daily for 2 days then stop. Please continue hydrocortisone as usual without changes. Please follow-up with Dr. Fiore in 1 week. Follow-up Provider: Lukasz Archuleta MD Follow-up with PCP in: 2 weeks Provider: Ashok Fiore DO Follow-up in: 1 week Time spent 40 minutes copies to: Ashok Fiore DO; Lukasz Archuleta MD, Melaku MD August 08, 2016 10:17
--- NOTE | 2016-08-08 10:23 | NUR ---
Social Work- Discharge Data: EMR reviewed. Pt is on day3 for dehydration/acute renal failure per H&P. Pt is medically ready for discharge. SW met with pt and pt's at bedside regarding discharge. denied any discharge needs at this time. states she is home with pt 07/10 and she is very happy that he is being discharged. Pt and denied any questions or concerns related to discharge. Pt to discharge home with to transport via POV. No discharge needs identified. Assessment: Pt who is independent at baseline and who has his to assist at home. Plan: Pt and denied any questions or concerns related to discharge. Pt to discharge home with to transport via POV. No discharge needs identified. ILYA Vora
--- NOTE | 2016-08-08 11:40 | NUR ---
DISCHARGE Patient denies pain. Tolerating liquids PO and his diet well. Denies nausea. No emesis noted. Denies SOB. Per patient he just had 1 BM this morning. Ambulating independently in the room. Gait is steady. Discharge instructions, care notes and prescription was given to the patient and he verbalized understanding. Discharged to home with his and all his personal belongings. (Copy of D/C is in the chart).
== END 2016-08-08 10:48 | disposition home or self-care (01) | DRG 683 ==
LOC: OSC 13:05 → UNDOADMIN 13:18 → OSC 13:18
PROVIDERS: ADMIT Internal Medicine; ATTEND Internal Medicine
DX: N17.9 Acute kidney failure, unspecified (principal); K52.1 Toxic gastroenteritis and colitis; C78.00 Secondary malignant neoplasm of unspecified lung; C79.31 Secondary malignant neoplasm of brain; C79.9 Secondary malignant neoplasm of unspecified site; E86.0 Dehydration; I10 Essential (primary) hypertension; T46.4X5A Adverse effect of angiotensin-converting-enzyme inhibitors, initial encounter; E03.9 Hypothyroidism, unspecified